=== PATIENT | female | born 1980 | race African-American/Black ===

== ENCOUNTER 2018-05-12 17:29 | Emergency (ER) | payer OTHER | END 2018-05-12 18:42 | disposition home or self-care (01) | LOC: MADERS 17:29 | DX: J06.9 Acute upper respiratory infection, unspecified (principal); F41.9 Anxiety disorder, unspecified | CPT/HCPCS: 87804; 99283 ==

== ENCOUNTER 2018-12-19 15:13 | Outpatient (CLI) | payer BC, OTHER ==
[2018-12-19 15:44] LABS: #Basophils 0.1 thou/uL (0.0-0.2); #Eosinphils 0.3 thou/uL (0.0-0.7); #Lymphocytes 2.8 thou/uL (1.20-3.40); #Monocytes 0.6 thou/uL (0.11-0.59); #Neutrophils 3.8 thou/uL (1.40-6.50); %Eosinophils 3.7 % (0.0-10.0); %Lymphocytes 36.5 % (21.0-51.0); %Neutrophils 50.8 % (42.0-75.0); Hemoglobin 12.8 g/dL (12.0-16.0); Mean Corpuscular HGB CONC 32.9 g/dL (32.0-36.0); Mean Corpuscular Hemoglobin 28.6 pg (27.0-31.0); Platelet Count 276 thou/uL (130-400); RBC Distribution Width 12.4 % (11.5-14.5); Red Blood Cell (RBC) Count 4.48 mill/uL (4.20-5.40); White Blood Cell (WBC) Count 7.6 thou/uL (4.8-10.8)
== END 2018-12-19 15:14 | disposition home or self-care (01) ==
LOC: MADLABBHPM 15:13
PROVIDERS: ATTEND Family Medicine
DX: N92.6 Irregular menstruation, unspecified (principal)
CPT/HCPCS: 36415; 82728; 83540; 85025

== ENCOUNTER 2018-12-24 07:55 | Outpatient (CLI) | payer BC ==
--- NOTE | 2018-12-24 10:42 | ULT ---
PELVIC ULTRASOUND: 12/24/2018 HISTORY: Irregular menstrual periods. COMPARISON: None. TECHNIQUE: Multiplanar zapata-scale sonographic imaging of the pelvis is obtained with transabdominal and endovagi nal imaging. The ovaries are assessed with color-flow and spectral analysis. FINDINGS: The uterus is retroflexed and measures 8.9 x 5.2 x 6.3 cm. No significant free fluid is seen within the pelvis. There is a small cystic structure associated with the endometrium in the lower uterine segment region , measuring 8 x 5 mm. The right ovary measures 4 x 2 x 1.9 cm and contains a dominant follicle measuring 1.7 cm. There is n ormal blood flow documented within the right ovary. The left ovary measures 2.9 x 1.7 x 1.9 cm and de monstrates normal blood flow without evidence for mass. The endometrial thickness is approximately 1.5 cm, upper limits of normal for a premenopausal female. IMPRESSION: No acute findings. POS: [facility]
== END 2018-12-24 07:56 | disposition home or self-care (01) ==
LOC: MADULT 07:55
PROVIDERS: ATTEND Family Medicine
DX: N92.6 Irregular menstruation, unspecified (principal); N94.9 Unspecified condition associated with female genital organs and menstrual cycle
CPT/HCPCS: 76856

== ENCOUNTER 2019-07-02 13:51 | Emergency (ER) | payer BC, SELFPAY | END 2019-07-02 14:21 | disposition home or self-care (01) | LOC: MADERS 13:51 | DX: H92.02 Otalgia, left ear (principal); F41.9 Anxiety disorder, unspecified | CPT/HCPCS: 99282 ==

== ENCOUNTER 2022-04-09 13:11 | Outpatient (CLI) | payer SELFPAY | END 2022-04-09 13:12 | disposition home or self-care (01) | LOC: MADLABBHPM 13:11 → MADLAB 13:12 | PROVIDERS: ATTEND Family Medicine | DX: Z12.31 Encounter for screening mammogram for malignant neoplasm of breast (principal) | CPT/HCPCS: 88175 ==

== ENCOUNTER 2024-02-13 07:37 | Emergency (ER) | payer OTHER, BC | END 2024-02-13 08:48 | disposition home or self-care (01) | LOC: MADERS 07:37 | DX: S60.221A Contusion of right hand, initial encounter (principal); W22.8XXA Striking against or struck by other objects, initial encounter | CPT/HCPCS: 99283 ==